=== PATIENT | male | born 1960 | race Asian ===

== ENCOUNTER 2021-02-13 14:24 | Emergency (ER) | payer OTHER | END 2021-02-13 16:29 | disposition home or self-care (01) | LOC: MADERS 14:24 | DX: S29.011A Strain of muscle and tendon of front wall of thorax, initial encounter (principal); I10 Essential (primary) hypertension; Z79.891 Long term (current) use of opiate analgesic; V89.2XXA Person injured in unspecified motor-vehicle accident, traffic, initial encounter | CPT/HCPCS: 71045; 93005 ==